=== PATIENT | male | born 1995 | race African-American/Black ===

== ENCOUNTER 2016-10-10 15:43 | Emergency (ER) | payer OTHER ==
[~2016-10-10] VITALS: Ht 182.9 cm; Wt 88.3 kg
[2016-10-10 15:47] VITALS: BP 124/70; TEMP 36.8; Ht 182.9 cm; Wt 88.3 kg
[2016-10-10] MEDS ORDERED: XYLOCAINE 1%/SOD BICARB 20 ML VIAL INFIL ONE (16:00)
--- NOTE | 2016-10-10 16:34 | EMERGENCY ROOM VISIT NOTE ---
History First contact with patient: 15:56 Chief Complaint: LACERATION/CUT (SUT/DERMABOND) Stated Complaint: STITCHES IN LOWER L SIDE LIP Nursing Triage Summary: lac to lower lip after playing rugby about 1 hr ago History of Present Illness The patient is a 21 year old male who presents to the Emergency Room with complaints of a lower lip laceration. The patient reports that he was accidentally kicked in the face while playing rugby. He reports that a cleat cut him. He denies any dental pain, jaw pain, headache, neck pain or other discomfort, and rates his pain a 1 out of 10. Tetanus immunization is up-to- date. The patient denies any significant bleeding from the wound. Review of Systems 6 system review was performed and was negative except for pertinent positives and negatives as indicated in history of present illness Past Medical/Surgical History Medical Problems: (1) No significant past medical history Surgical Problems: (1) No history of previous surgery Family History No significant family history Unremarkable Social History Smoking Status: Never Smoker Alcohol Use: occasionally Marital Status: single Occupation Status: unemployed, other ([employer] Current/Historical Medications No Active Prescriptions or Reported Meds Allergies Coded Allergies: No Known Allergies (Unverified , 10/10/16) Physical Exam Vital Signs Date Time Temp Pulse Resp B/P Pulse Ox O2 Delivery O2 Flow Rate FiO2 10/10/16 15:47 36.8 64 18 124/70 99 Room Air Physical Exam CONSTITUTIONAL: Healthy and well nourished. Alert and oriented X 3 with positive affect. HEENT: Examination of the left lower lip shows a 1 cm stellate laceration that crosses the vermilion border. No active bleeding noted. OROPHARYNX: No dental trauma or other intraoral lacerations noted. NECK: Full active range of motion without discomfort. INTEGUMENTARY: No rash or other significant dermatologic conditions noted. NEUROLOGIC: Facial sensations are intact. Medical Decision & Procedures Medications Administered Medications (Trade) Dose Ordered Sig/Indira Route Start Time Stop Time Status Last Admin Dose Admin Lidocaine HCl (Buffered Lidocaine 1% Inj) 20 ml ONE ONCE INFIL 10/10/16 16:00 10/10/16 16:01 DC 10/10/16 16:00 20 ML Procedure Laceration repair was performed under local anesthesia after receiving verbal consent from the patient. Using buffered 1% lidocaine without epinephrine, good local anesthesia was administered. The wound was then peripherally cleansed with iodine, then lightly irrigated with normal saline. No foreign debris was noted on irrigation. The wound was then meticulously approximated using 6-0 nylon simple interrupted sutures 5. ED Course Patient history and physical exam were performed. Nurse's notes were reviewed. Laceration repair was performed under local anesthesia. The patient was provided additional verbal and written wound care instructions. Ice for swelling. Ibuprofen or Tylenol as needed for pain. Suture removal in 5-7 days , or seek reevaluation sooner for any signs of wound infection. The patient was happy with plan of care, voiced understanding of all discharge instructions , and denied any pain at the time of discharge. Impression Primary Impression: Facial laceration Departure Information Dispostion Home / Self-Care Prescriptions No Active Prescriptions or Reported Meds Referrals No Doctor, Assigned (PCP) Forms HOME CARE DOCUMENTATION FORM, IMPORTANT VISIT INFORMATION Patient Instructions My [facility] Additional Instructions Keep wound clean and dry. Do not allow any crusting or dried blood to accumulate on sutures. If this occurs, use a 1:1 solution of hydrogen peroxide/ water on a Q-tip to clean the wound. Use an antibiotic ointment for 3 days, then let wound dry. Suture removal in 5-7 days. Return sooner for any signs of infection (increasing redness, swelling, drainage). Ice for swelling. Ibuprofen 600 mg and/or Tylenol 1000 mg every 6 hrs as needed for pain. Problem Qualifiers Primary Impression: Facial laceration Encounter type: initial encounter Qualified Codes: S01.81XA - Laceration without foreign body of other part of head, initial encounter
[2016-10-10 16:43] VITALS: PULSE 55; O2SAT 100
== END 2016-10-10 16:46 | disposition home or self-care (01) ==
LOC: C.EDB 15:46 → C.EDD 16:46
DX: S01.81XA Laceration without foreign body of other part of head, initial encounter (principal); W22.8XXA Striking against or struck by other objects, initial encounter